=== PATIENT | male | born 1995 | race African-American/Black ===

== ENCOUNTER 2016-10-21 05:10 | Emergency (ER) | payer SELFPAY ==
[2016-10-21] MEDS ORDERED: Ondansetron HCl/PF 4 MG/2 ML Vial ONE (05:43)
[2016-10-21] MEDS ORDERED: Morphine Sulfate 2 MG/ML SYRINGE ONE ×2 (05:43→07:58)
[2016-10-21 05:53] LABS: #Basophils 0.1 thou/uL (0.0-0.2); #Eosinphils 0.2 thou/uL (0.0-0.7); #Lymphocytes 3.1 thou/uL (1.20-3.40); #Monocytes 0.5 thou/uL (0.11-0.59); #Neutrophils 2.8 thou/uL (1.40-6.50); %Basophils 1.1 % (0.0-1.0); %Eosinophils 3.2 % (0.0-10.0); %Lymphocytes 46.6 % (21.0-51.0); %Monocytes 6.8 % (0.0-10.0); %Neutrophils 42.2 % (42.0-75.0); Hemoglobin 13.8 g/dL (14.0-18.0); Mean Corpuscular HGB CONC 33.9 g/dL (32.0-36.0); Mean Corpuscular Volume 91.2 fl (80.0-94.0); Mean Platelet Volume 7.5 fL (7.4-10.4); Platelet Count 171 thou/uL (130-400); RBC Distribution Width 12.6 % (11.5-14.5); Red Blood Cell (RBC) Count 4.45 mill/uL (4.70-6.10); White Blood Cell (WBC) Count 6.7 thou/uL (4.8-10.8)
[2016-10-21] MEDS ORDERED: Pantoprazole 40 MG VIAL ONE (06:01)
[2016-10-21 06:25] LABS: ALT (SGPT) 29 U/L (0-55); AST (SGOT) 28 U/L (5-34); Alkaline Phosphatase 51 U/L (40-150); Anion Gap 15 mmol/L (10-20); BUN (Urea Nitrogen) 13 mg/dL (8.9-20.6); Bilirubin, Total 0.3 mg/dL (0.2-1.2); Calc. Creatinine Clearance 0 mL/min (70-130); Carbon Dioxide 26 mmol/L (22-29); Chloride 104 mmol/L (98-107); Estimated GFR-MDRD Greater than 90; Globulin 3.1 g/dL (2.4-3.5); Glucose 103 mg/dL (70-105); Lipase 581 U/L (8-78); Potassium 3.9 mmol/L (3.5-5.1); Protein, Total 7.1 g/dL (6.0-8.3); Sodium 141 mmol/L (136-145)
[2016-10-21 06:35] LABS: Bilirubin Negative (Negative); Blood, Urine Negative (Negative); Clarity Clear (Clear); Glucose, Urine (Dipstick) Negative (Negative); Leukocyte Negative (Negative); Nitrite Negative (Negative); Protein, Urine (Dipstick) Negative (Neg-Trace); Urobilinogen 0.2 mg/dL (0.2-1.0)
[2016-10-21 06:52] LABS: Amphetamine Not Detected (NotDetected); Barbiturates Screen Not Detected (NotDetected); Benzodiazepine Screen Not Detected (NotDetected); Cocaine Metabolite Screen Not Detected (NotDetected); Medtox Control Line Valid? VALID (VALID); Methadone Not Detected (NotDetected); Methamphetamine Not Detected (NotDetected); Opiate Screen Not Detected (NotDetected); Oxycodone Screen Not Detected (NotDetected); Phencyclidine (PCP) Not Detected (NotDetected); THC/Cannabinoid Screen Detected (NotDetected); Tricyclic Screen Not Detected (NotDetected)
--- NOTE | 2016-10-21 07:49 | RAD ---
TWO VIEWS ABDOMEN AND UPRIGHT VIEW OF THE CHEST: COMPARISON: None. HISTORY: Chest and abdominal pain. FINDINGS: Supine and upright views of the abdomen and upright view of the chest show a nonspecific, nonobstruc jethro bowel gas pattern. Air is seen throughout the colon to the level of the rectum. No free air is seen on upright examination. The cardiomediastinal silhouette is normal in size. There is no evidence of consolidation, mass, or pleural effusion. IMPRESSION: Unremarkable exam. POS: ANGELAH
[2016-10-21] MEDS ORDERED: Piperacillin/Tazobactam 3.375 GM VIAL ONE (07:58)
--- NOTE | 2016-10-21 08:03 | ULT ---
RIGHT UPPER QUADRANT ABDOMINAL ULTRASOUND: HISTORY: Right upper quadrant pain since 2:00 this morning. The patient was recently diagnosed with gallblad vivian stones. TECHNIQUE: Multiplanar, bell scale, and color Doppler images were obtained in a right upper quadrant abdominal ultrasound. FINDINGS: The liver is normal in echogenicity without focal lesions or intrahepatic ductal dilatation. The ga llbladder contains a shadowing stone in the neck. There is gallbladder wall thickening without maria eugenia cholecystic fluid. A positive sonographic Mena's sign was reported by the technologist. The comm on bile duct is normal in caliber measuring 3 mm. The visualized portions of the pancreas are unremarkable. The right kidney is normal in echogenicit y without focal lesion and measures 10.0 cm in length. IMPRESSION: Cholelithiasis with findings suggesting possible acute cholecystitis. POS: ANGELAH
[2016-10-21] MEDS ORDERED: Sodium Chloride 0.9% 100 ML BAG ONE (08:57)
[2016-10-21] MEDS ORDERED: Sodium Chloride 0.9% 1,000 ML BAG ONE (08:57)
== END 2016-10-21 09:10 | disposition home or self-care (01) ==
LOC: MADERS 05:10
DX: K80.50 Calculus of bile duct without cholangitis or cholecystitis without obstruction (principal); K85.90 Acute pancreatitis without necrosis or infection, unspecified; K21.9 Gastro-esophageal reflux disease without esophagitis; F17.210 Nicotine dependence, cigarettes, uncomplicated; Z79.899 Other long term (current) drug therapy
CPT/HCPCS: 74022; 76705; 80053; 80306; 81003; 83690; 85025; 96361; 96365; 96375; 96376; C9113; J2270; J2405; J2543; J7050

== ENCOUNTER 2016-12-15 13:29 | Emergency (ER) | payer SELFPAY | END 2016-12-15 14:00 | disposition home or self-care (01) | LOC: MADERS 13:29 | DX: R10.13 Epigastric pain (principal); R10.10 Upper abdominal pain, unspecified; K21.9 Gastro-esophageal reflux disease without esophagitis; F17.210 Nicotine dependence, cigarettes, uncomplicated | CPT/HCPCS: 99283 ==